=== PATIENT | male | born 1985 | race Caucasian/White ===

== ENCOUNTER 2020-06-19 16:43 | Emergency (ER) | payer OTHER ==
[~2020-06-19] VITALS: Ht 182.9 cm; Wt 93.0 kg
[2020-06-19] MEDS ORDERED: KEFLEX500 M1 PO (17:29)
[2020-06-19] MEDS ORDERED: NORCO 5-325 TA1 EAC2 PO (17:29)
[2020-06-19] MEDS ORDERED: IBUPROFEN 800800 M1 PO (17:29)
[2020-06-19 18:00] VITALS: BP 122/80
== END 2020-06-19 18:05 | disposition home or self-care (01) ==
LOC: M.ERS 16:43
DX: S92.422A Displaced fracture of distal phalanx of left great toe, initial encounter for closed fracture (principal); Z90.89 Acquired absence of other organs; W22.8XXA Striking against or struck by other objects, initial encounter; Y93.89 Activity, other specified; Y92.89 Other specified places as the place of occurrence of the external cause; Y99.8 Other external cause status